=== PATIENT | female | born 1950 | race Asian ===

== ENCOUNTER 2019-07-06 13:50 | Outpatient (CLI) | payer OTHER | END 2019-07-06 20:11 | disposition home or self-care (01) | LOC: RAD 13:50 | DX: M85.89 Other specified disorders of bone density and structure, multiple sites (principal) ==

== ENCOUNTER 2020-05-11 09:15 | Outpatient (CLI) | payer OTHER | END 2020-05-11 19:33 | disposition home or self-care (01) | LOC: RAD 09:15 | PROVIDERS: ATTEND Nurse Practitioner Family | DX: E11.9 Type 2 diabetes mellitus without complications (principal); K21.9 Gastro-esophageal reflux disease without esophagitis; M05.79 Rheumatoid arthritis with rheumatoid factor of multiple sites without organ or systems involvement; M17.0 Bilateral primary osteoarthritis of knee; M25.562 Pain in left knee; Z79.899 Other long term (current) drug therapy; N95.8 Other specified menopausal and perimenopausal disorders ==

== ENCOUNTER 2020-09-20 10:33 | Outpatient (CLI) | payer OTHER | END 2020-09-20 19:15 | disposition home or self-care (01) | LOC: RAD 10:33 | PROVIDERS: ATTEND Nurse Practitioner Family | DX: M05.79 Rheumatoid arthritis with rheumatoid factor of multiple sites without organ or systems involvement (principal); M06.4 Inflammatory polyarthropathy; M17.0 Bilateral primary osteoarthritis of knee; M54.5 Low back pain; Z79.899 Other long term (current) drug therapy ==

== ENCOUNTER 2020-09-28 08:15 | Outpatient (CLI) | payer OTHER | END 2020-09-28 21:23 | disposition home or self-care (01) | LOC: RESP 08:15 | PROVIDERS: ATTEND Nurse Practitioner Family | DX: M05.79 Rheumatoid arthritis with rheumatoid factor of multiple sites without organ or systems involvement (principal); M06.4 Inflammatory polyarthropathy; M17.0 Bilateral primary osteoarthritis of knee; M54.5 Low back pain; Z79.899 Other long term (current) drug therapy ==